=== PATIENT | male | born 1950 | race Two or more races ===

== ENCOUNTER 2018-08-14 21:12 | Emergency (ER) | payer OTHER ==
[~2018-08-14] VITALS: Ht 177.8 cm; Wt 95.7 kg
[~2018-08-14 21:12] MED LIST: ASPIR 8181 MG; CELECOXIB200 MG; FENOFIBRATE160 MG; FINASTERIDE5 MG; HYDROCHLOROTHIA25 MG; LOSARTAN POTASS50 MG; SYNTHROID125 MCG; TAMS0.4C
[2018-08-15] MEDS ORDERED: DIPHENOXYLATE-1 EACH PO (02:14)
[2018-08-15] MEDS ORDERED: LEVSIN/SL0.125 MG SL (02:14)
== END 2018-08-15 02:34 | disposition home or self-care (01) ==
LOC: ER 21:12
DX: A04.9 Bacterial intestinal infection, unspecified (principal)

== ENCOUNTER 2018-10-19 05:00 | Day surgery (SDC) | payer OTHER ==
[~2018-10-19 05:00] MED LIST changes: +DIALYVITE 8001 EACH PO; +DIPHENOXYLATE-1 EACH PO; +FINOFIBRATE PO; +FOLIC ACID PO; +LEVSIN/SL0.125 MG SL; +NEURIN PO; +[UNRECOGNIZED DRUG - OTHER] PO; +[UNRECOGNIZED DRUG - OTHER] PO
== END 2018-10-19 13:15 | disposition home or self-care (01) ==
LOC: CIR.AMB 05:00
DX: K80.10 Calculus of gallbladder with chronic cholecystitis without obstruction (principal)

== ENCOUNTER 2019-01-19 10:32 | Inpatient (IN) | payer OTHER ==
[~2019-01-19] VITALS: Ht 25.4 cm; Wt 5.0 kg
[2019-01-22] MEDS ORDERED: FOLIC ACID1 MG PO (09:35)
[2019-01-22] MEDS ORDERED: TAMSULOSIN HCL0.4 MG PO (09:36)
[2019-01-22] MEDS ORDERED: FINASTERIDE5 MG PO (09:38)
[2019-01-22] MEDS ORDERED: ABANEU-SL TABL1 EACH SL (09:44)
== END 2019-01-25 20:02 | disposition home or self-care (01) | DRG 977 ==
LOC: ER 10:32 → MEDJ 16:00
PROVIDERS: ADMIT Internal Medicine
PROC: BW28ZZZ Computerized Tomography (CT Scan) of Head (ICD-10-PCS; principal; 2019-01-19)
PROC: B030ZZZ Magnetic Resonance Imaging (MRI) of Brain (ICD-10-PCS; 2019-01-22)
PROC: B348ZZZ Ultrasonography of Bilateral Internal Carotid Arteries (ICD-10-PCS; 2019-01-22)
PROC: B345ZZZ Ultrasonography of Bilateral Common Carotid Arteries (ICD-10-PCS; 2019-01-22)
DX: B20 Human immunodeficiency virus [HIV] disease (principal); H70.09 Acute mastoiditis with other complications; K52.89 Other specified noninfective gastroenteritis and colitis; E86.0 Dehydration; E03.8 Other specified hypothyroidism; R42 Dizziness and giddiness; I10 Essential (primary) hypertension
CPT/HCPCS: 70553

== ENCOUNTER 2019-05-04 08:47 | Emergency (ER) | payer OTHER ==
[~2019-05-04] VITALS: Ht 177.8 cm; Wt 90.3 kg
[~2019-05-04 08:47] MED LIST changes: +ABANEU-SL TABL1 EACH SL; +FINASTERIDE5 MG PO; +FOLIC ACID1 MG PO; +TAMSULOSIN HCL0.4 MG PO
== END 2019-05-04 11:39 | disposition home or self-care (01) ==
LOC: ER 08:47
DX: M79.642 Pain in left hand (principal); S61.42 Laceration with foreign body of hand; W45.8XXS Other foreign body or object entering through skin, sequela

== ENCOUNTER → 2019-06-26 | Emergency (ER) | payer OTHER ==
[~2019-06-26] VITALS: Ht 177.8 cm; Wt 90.3 kg
== END | disposition home or self-care (01) ==
LOC: ER 01:00
DX: S61.432A Puncture wound without foreign body of left hand, initial encounter (principal); R60.0 Localized edema; W26.8XXA Contact with other sharp object(s), not elsewhere classified, initial encounter; Y93.89 Activity, other specified; Y92.89 Other specified places as the place of occurrence of the external cause; Y99.8 Other external cause status

== ENCOUNTER 2021-05-11 11:53 | Emergency (ER) | payer OTHER ==
[~2021-05-11] VITALS: Ht 177.8 cm; Wt 91.2 kg
[2021-05-11] MEDS ORDERED: HORIZANT300 MG PO (12:56)
[2021-05-11] MEDS ORDERED: NORFLEX100MG PO (17:13)
[2021-05-11] MEDS ORDERED: ACETAMINOPHEN650 M2 PO (17:13)
== END 2021-05-11 17:31 | disposition home or self-care (01) ==
LOC: ER 11:53
DX: S00.03XA Contusion of scalp, initial encounter (principal); W18.09XA Striking against other object with subsequent fall, initial encounter; Y93.89 Activity, other specified; Y92.018 Other place in single-family (private) house as the place of occurrence of the external cause; Y99.8 Other external cause status

== ENCOUNTER 2023-05-12 12:56 | Emergency (ER) | payer OTHER ==
[~2023-05-12] VITALS: Ht 177.8 cm; Wt 90.7 kg
[~2023-05-12 12:56] MED LIST changes: +ACETAMINOPHEN650 M2 PO; +HORIZANT300 MG PO; +NORFLEX100MG PO
== END 2023-05-12 17:23 | disposition home or self-care (01) ==
LOC: ER 12:56
DX: S01.82XA Laceration with foreign body of other part of head, initial encounter (principal); W22.8XXA Striking against or struck by other objects, initial encounter; Y93.89 Activity, other specified; Y92.89 Other specified places as the place of occurrence of the external cause